=== PATIENT | male | born 1965 | race Caucasian/White ===

== ENCOUNTER 2022-12-08 14:21 | Emergency (ER) | payer BC, SELFPAY ==
--- NOTE | ~2022-12-08 | XR_ITS ---
EXAMINATION: XR CHEST CLINICAL INFORMATION: feeling unwell, shaking. COMPARISON: None TECHNIQUE: Frontal view of the chest was obtained. FINDINGS: Normal appearance of the cardiomediastinal silhouette. EKG wires overlie the chest. Query very subtle focal hazy opacities in the right lower lobe, otherwise clear lungs. No pleural effusion or pneumothorax. No acute osseous abnormalities. The visualized upper abdomen is within normal limits. XR/XR chest 1V IMPRESSION: Query subtle focal hazy opacities in the right lower lobe which could be related with subsegmental atelectasis, aspiration or early infiltrate.
--- NOTE | 2022-12-08 14:30 | ECG_ITS ---
Test Reason : generally feeling unwell Blood Pressure : / mmHG Vent. Rate : 093 BPM Atrial Rate : 093 BPM P-R Int : 152 ms QRS Dur : 084 ms QT Int : 360 ms P-R-T Axes : 057 048 047 degrees QTc Int : 447 ms Normal sinus rhythm Nonspecific ST and T wave abnormality Abnormal ECG No previous ECGs available Referred By: Justine Ponce Electronically Signed By:BRICE ROWELL MD
[2022-12-08 14:33] VITALS: BP 177/87; PULSE 104; RESP 21; TEMP 36.6; O2SAT 93
[2022-12-08 14:34] LABS: Glucose, Whole Blood 222 mg/dL (60-115)
[2022-12-08 14:39] VITALS: BP 160/85; PULSE 96; RESP 16; TEMP 36.6; O2SAT 96; BMI 31.5
[2022-12-08 14:52] LABS: MANUAL DIFF FLAG NO
[2022-12-08 14:53] LABS: Basophils Percent Auto 0.8 % (0-2); Eosinophils Absolute Auto 0.1 X10*3/uL (0.0-0.4); Eosinophils Percent Auto 1.2 % (0-4); Hemoglobin 13.8 g/dl (14.0-18.0); Imm Gran Abs Auto 0.01 X10*3/uL (0.00-0.03); Imm Gran Pct Auto 0.2 % (0.0-0.4); Lymphocytes Percent Auto 20.2 % (20-40); Mean Corpuscular HGB Conc 34.5 g/dl (31.0-36.0); Mean Corpuscular Volume 95.7 fL (80.0-98.0); Mean Platelet Volume 9.6 fL (9.4-12.4); Monocytes Absolute Auto 0.3 X10*3/uL (0.1-1.2); Monocytes Percent Auto 5.5 % (2-11); Neutrophils Absolute Auto 3.5 x10*3/uL (2.0-8.3); Neutrophils Percent Auto 72.1 % (45-73); Red Blood Count 4.18 X10*6/uL (4.60-5.80); Red Cell Distribution Width 13.4 % (11.0-16.0); White Blood Count 4.9 X10*3/uL (4.8-10.8)
[2022-12-08 15:12] LABS: Platelet Count 95 X10*3/uL (160-400)
[2022-12-08 15:19] LABS: Alanine Aminotransferase 40 U/L (0-40); Albumin Level 3.9 g/dL (3.5-5.0); Alkaline Phosphatase 75 U/L (39-117); Anion Gap 19 (12-20); Aspartate Amino Transferase 126 U/L (5-37); Bilirubin Total 3.3 mg/dL (0.0-1.0); Blood Urea Nitrogen 5 mg/dL (9-16); Calcium 9.1 mg/dL (8.4-10.2); Carbon Dioxide 22 mmol/L (22-29); Chloride 97 mmol/L (96-108); Creatinine Clr Calc Pharmacy 135.3; Estimated Glomerular Filt Rate > 60; Glucose Random 200 mg/dL (60-115); Magnesium 1.5 mg/dL (1.6-2.6); Potassium 4.1 mmol/L (3.3-5.1); Sodium 134 mmol/L (135-145); Total Protein 7.9 g/dL (6.5-8.0)
[2022-12-08 15:23] LABS: B Type Natriuretic Peptide < 10 pg/mL (<100)
[2022-12-08 15:27] LABS: Troponin-I High Sensitivity < 3.5 ng/L (<3.5-35.0)
[2022-12-08 16:00] VITALS: BP 141/83; PULSE 83; RESP 16; TEMP 36.7; O2SAT 98
--- NOTE | 2022-12-08 16:02 | MHC.EDTECH ---
this pct assumed care of patient at 1500 ,vitals sign taken ,patient asked for a cup of water ,provider said it was ok for patient to have water ,call pena within reach .
[2022-12-08 16:04] LABS: Influenza A PCR NEGATIVE (Negative); Influenza B PCR NEGATIVE (Negative); Resp Syncy Virus RNA Qual PCR NEGATIVE (Negative); SARS COV2 PCR INHOUSE NEGATIVE (Negative)
[2022-12-08] MEDS: Magnesium Oxide 400 MG TABLET 800 MG PO (16:30)
--- NOTE | 2022-12-08 16:36 | ED_ITS ---
HPI - General Adult General Chief complaint: Weakness Stated complaint: pt st having a stroke Time Seen by Provider: 12/08/22 14:25 Source: patient Mode of arrival: ambulatory Limitations: no limitations History of Present Illness HPI narrative: 57-year-old male with a past medical history of vertigo and type 2 diabetes controlled with oral medications presents to the emergency department today with complaints of a sudden onset of shaking and not feeling well while he was at work. On arrival to the emergency department, no neurologic deficits noted. He is concerned that this might be side effect of meclizine which he takes for vertigo, however; he states he has not had this side effect before but the santiago ing potentially correlates with his onset of symptoms. He reports a significant volume of stress lately, as his dog recently which has led to increased alcohol intake over the last week. He denies any binge drinking or drug use. He denies any recent illness or sick contacts. He de nies any chest pain, shortness of breath, diarrhea, constipation, fever, chills, headache, vision changes. Onset (ago): minute(s) ( 30 minutes prior to ED arrival at roughly 2:00 p.m.) Related Data Previous Rx's Medication Instructions Recorded azithromycin 250 mg tablet 250 mg PO DAILY 4 days #4 tabs 12/08/22 lorazepam 0.5 mg tablet 0.5 mg PO BID PRN anxiety #2 tabs 12/08/22 Allergies Allergy/AdvReac Type Severity Reaction Status Date / Time No Known Allergies Allergy Verified 12/08/22 14:30 Review of Systems Review of Systems: In addition to documented HPI above, the additional ROS was obtained: CONSTITUTIONAL: Denies fever, chills, weakness, fatigue, headache, night swea ts, or weight loss EYES: Denies vision changes, eye pain, swelling, redness, foreign body, discharge ENT: Hearing normal. Denies sore throat, swallowing difficulty, throat tightness, hoarse voice, congestion, or ear pain CV: Denies chest pain or epigastric pain. No edema, palpitations, or dyspnea on exertion RESP: Denies shortness of breath. Denies cough, wheezing, dyspnea. Denies smoke exposure GI: Denies abdominal pain. Denies nausea, vomiting, constipation or diarrhea. No hematemesis, melena, or hematochezia. : Denies dysuria, urinary frequency, urinary incontinence/retention, urgency. Denies flank pain or hematuria MSK: Denies recent trauma, change in gait, myalgias, joint swelling or pain SKIN: Denies no lesions, rashes, or sores NEURO: Denies new numbness, tingling, dizziness, paresthesias or weakness. No loss of consciousness. Denies headache ENDOCRINE: Denies unexpected weight loss. Denies polyuria, polydipsia. No temperature intolerance HEME/ONC: Denies bleeding disorders, easy bruising, or lymphadenopathy PSYCH: Denies anxiety/panic, depression, SI/HI, or social issues. Yes all other systems are reviewed and are negative [facility] Social History Social History Alcohol intake: current Alcohol intake frequency: 3 or more drinks per day Advance Directives: No Advance Directives Information Provided: No Physical Exam ED Vital Signs: Vital Signs - 24 hr 12/08/22 14:33 12/08/22 14:39 12/08/22 16:00 Temperature 97.9 F 97.9 F 98.0 F Pulse Rate 104 H 96 83 Respiratory Rate 21 H 16 16 Blood Pressure 177/87 H 160/85 H 141/83 H Pulse Oximetry 93 96 98 Oxygen Delivery Method Room Air Room Air Room Air BMI result Body Mass Index 31.5 Nursing notes and vital signs reviewed. GENERAL APPEARANCE: A&0 x 4, generally well appearing, no acute distress HENMT: Normal to inspection, atraumatic, face symmetrical. Normal external ears, nose, and oropharynx clear. EYE: PERRLA, EOM intact, structures appear normal NECK: Supple without lymphadenopathy. No stiffness or restricted ROM. CHEST: Normal to inspection HEART: Normal rate and regular rhythm, normal S1/S2, no M/R/G LUNGS: LS CTA, moving air well. Able to speak in complete sentences. No crackles, wheezes, or rhonchi auscultated ABDOMEN: Round, soft, nontender, nondistended. Normal bowel sounds noted BACK: No CVAT, no obvious deformity EXTREMITIES: Moving all extremities without difficulty. No cyanosis, clubbing, or edema. Normal capillary refill. NEUROLOGICAL: Alert and oriented, moving all 4 extremities with equal strength. CN not formally tested but appearing grossly intact. Observed to ambulate with normal gait. Cognition normal SKIN: Warm and dry without any lesions, rash, or visible sores PSYCH: Cooperative, normal affect, normal thought process Course Course Course Narrative: 1430: plan for labs, serology, UA, CXR, EKG. Initial VS with HR >104 and SpO2 93%, once pt settled into the bed and began speaking VS improved to HR 80-90 and SpO2 > 95%. 1615: Plan for 800 mg mag replacement. CXR atelectasis versus aspiration versus early infiltrate. Will plan to begin antibiotic therapy for coverage of potential pneumonia. 1645: On re-evaluation, patient states he has been having a lot of anxiety and feeling depressed due to the loss of his dog in addition to an increased work schedule at [employer] ex. He states he is had to work the last 7 days and he feels stressed and overwhelmed. Patient does not feel as if he is in crisis at this time and denies SI/HI, or self-harm. Offered patient to speak with crisis and declined. Patient provided with phone number for [facility]. Plan for two prescribed lorazepam for management of anxiety. Medications Administered Discontinued Medications Generic Name Dose Route Start Last Admin Trade Name Shana PRN Reason Stop Dose Admin Azithromycin 500 mg 12/08/22 16:47 12/08/22 17:01 Azithromycin 500 Mg Tablet PO 12/08/22 16:48 500 mg ONCE ONE Administration Lorazepam 1 mg 12/08/22 16:57 12/08/22 17:00 Lorazepam 1 Mg Tablet PO 12/08/22 16:58 1 mg ONCE ONE Administration Magnesium Oxide 800 mg 12/08/22 16:23 12/08/22 16:30 Magnesium Oxide 400 Mg Tablet PO 12/08/22 16:24 800 mg ONCE ONE Administration Medical Decision Making Medical Decision Making [facility] Narrative: 57-year-old male with a past medical history of vertigo and type 2 diabetes controlled with oral medications presents to the emergency department today with complaints of a sudden onset of shaking and not feeling well while he was at work. Well's score 0, low risk for PE. Repeat VS with HR < 100 and SpO2 >98 %. Chest x-ray showing atelectasis versus aspiration versus early infiltrate. Will plan to cover with Azithromycin for potential pneumonia. Blood work unremarkable for any acute concern. Mag level 1.5 with 800 mg p.o. replacement given. Normocytic anemia and mild asymptomatic thrombocytopenia noted along with glucose 223. Patient counseled to follow-up with his primary care provider in 2-3 days. Serology negative for RSV, flu, COVID-19. LS CTA, SWANSON equally with good strength, A&O x4. History, physical, and diagnostic exams consistent with acute anxiety. Low suspicion for ACS, PE, DVT, CVA. Patient is safe for discharge at this time with plan to manage symptoms with prescribed antibiotic and antianxiety medication (two 1 mg PRN pills prescribed). Patient counseled that antianxiety medication should not be taken if driving, drinking alcohol, or using other sedating medications. HPI, PE, diagnostics, and plan discussed with patient and family with no unanswered questions at this time. Patient educated to return to the emergency department with chest pain, shortness of breath, severe headache, vision changes, or concerning emergent symptoms. Recommended to follow-up with her primary care provider for further treatment and management. *Refer to Course for additional information on consultations, diagnostic interpretation, consultations, emergency department stay, conversations with patient and family, shared decision making with patient, and more information on medical decision making* Lab Data 12/08/22 14:44 12/08/22 14:44 Labs: Lab Results 12/08/22 12/08/22 12/08/22 Range/Units 14:30 14:44 14:44 WBC 4.9 (4.8-10.8) X10*3/uL RBC 4.18 L (4.60-5.80) X10*6/uL Hgb 13.8 L (14.0-18.0) g/dl Hct 40.0 L (42.0-52.0) % MCV 95.7 (80.0-98.0) fL MCH 33.0 (27.0-33.0) pg MCHC 34.5 (31.0-36.0) g/dl RDW 13.4 (11.0-16.0) % Plt Count 95 L (160-400) X10*3/uL MPV 9.6 (9.4-12.4) fL Immature Gran % (Auto) 0.2 (0.0-0.4) % Neut % (Auto) 72.1 (45-73) % Lymph % (Auto) 20.2 (20-40) % [place] % (Auto) 5.5 (2-11) % Eos % (Auto) 1.2 (0-4) % Baso % (Auto) 0.8 (0-2) % Lymph # (Auto) 1.0 L (1.2-4.9) X10*3/uL [place] # (Auto) 0.3 (0.1-1.2) X10*3/uL Eos # (Auto) 0.1 (0.0-0.4) X10*3/uL Baso # (Auto) 0.0 (0.0-0.2) X10*3/uL Abs Immat Gran (auto) 0.01 (0.00-0.03) X10*3/uL Absolute Neuts (auto) 3.5 (2.0-8.3) x10*3/uL Absolute Nucleated RBC 0.000 (0.0-0.012) X10*3/uL Nucleated RBC % (auto) 0.0 (0.0-0.2) /100WBC Sodium 134 L (135-145) mmol/L Potassium 4.1 (3.3-5.1) mmol/L Chloride 97 (96-108) mmol/L Carbon Dioxide 22 (22-29) mmol/L Anion Gap 19 (12-20) BUN 5 L (9-16) mg/dL Creatinine 0.73 (0.5-1.4) mg/dL Estim Creat Clear Calc 135.3 Estimated GFR > 60 POC Glucose 222 H (60-115) mg/dL Random Glucose 200 H (60-115) mg/dL Calcium 9.1 (8.4-10.2) mg/dL Magnesium 1.5 L (1.6-2.6) mg/dL Total Bilirubin 3.3 H (0.0-1.0) mg/dL AST 126 H (5-37) U/L ALT 40 (0-40) U/L Alkaline Phosphatase 75 (39-117) U/L Troponin I High Sens (<3.5-35.0) ng/L B-Natriuretic Peptide (<100) pg/mL Total Protein 7.9 (6.5-8.0) g/dL Albumin 3.9 (3.5-5.0) g/dL Influenza Type A (PCR) (Negative) Influenza Type B (PCR) (Negative) RSV RNA Qual (PCR) (Negative) SARS-CoV-2 RNA (RT-PCR) (Negative) 01/21/23 01/21/23 01/21/23 Range/Units 14:44 14:44 14:44 WBC (4.8-10.8) X10*3/uL RBC (4.60-5.80) X10*6/uL Hgb (14.0-18.0) g/dl Hct (42.0-52.0) % MCV (80.0-98.0) fL MCH (27.0-33.0) pg MCHC (31.0-36.0) g/dl RDW (11.0-16.0) % Plt Count (160-400) X10*3/uL MPV (9.4-12.4) fL Immature Gran % (Auto) (0.0-0.4) % Neut % (Auto) (45-73) % Lymph % (Auto) (20-40) % [place] % (Auto) (2-11) % Eos % (Auto) (0-4) % Baso % (Auto) (0-2) % Lymph # (Auto) (1.2-4.9) X10*3/uL [place] # (Auto) (0.1-1.2) X10*3/uL Eos # (Auto) (0.0-0.4) X10*3/uL Baso # (Auto) (0.0-0.2) X10*3/uL Abs Immat Gran (auto) (0.00-0.03) X10*3/uL Absolute Neuts (auto) (2.0-8.3) x10*3/uL Absolute Nucleated RBC (0.0-0.012) X10*3/uL Nucleated RBC % (auto) (0.0-0.2) /100WBC Sodium (135-145) mmol/L Potassium (3.3-5.1) mmol/L Chloride (96-108) mmol/L Carbon Dioxide (22-29) mmol/L Anion Gap (12-20) BUN (9-16) mg/dL Creatinine (0.5-1.4) mg/dL Estim Creat Clear Calc Estimated GFR POC Glucose (60-115) mg/dL Random Glucose (60-115) mg/dL Calcium (8.4-10.2) mg/dL Magnesium (1.6-2.6) mg/dL Total Bilirubin (0.0-1.0) mg/dL AST (5-37) U/L ALT (0-40) U/L Alkaline Phosphatase (39-117) U/L Troponin I High Sens < 3.5 (<3.5-35.0) ng/L B-Natriuretic Peptide < 10 (<100) pg/mL Total Protein (6.5-8.0) g/dL Albumin (3.5-5.0) g/dL Influenza Type A (PCR) NEGATIVE (Negative) Influenza Type B (PCR) NEGATIVE (Negative) RSV RNA Qual (PCR) NEGATIVE (Negative) SARS-CoV-2 RNA (RT-PCR) NEGATIVE (Negative) Independent Interpretation I performed an independent interpretation of an: EKG Interpretation: I have independently reviewed the EKG showing normal sinus rhythm at 93 bpm, nonischemic. Vent. Rate : 093 BPM ? ? Atrial Rate : 093 BPM ?? P-R Int : 152 ms? QRS Dur : 084 ms ? ? QT Int : 360 ms ? ? ? P-R-T Axes : 057 048 047 degrees ?? QTc Int : 447 ms ? Normal sinus rhythm Nonspecific ST and T wave abnormality Abnormal ECG No previous ECGs available Radiology Impression Discussion of test interpretation with radiology: I have reviewed the radiologist's reading. Radiologist Impression: I have independently reviewed the chest x-ray showing atelectasis vs aspiration vs early infiltrate EXAMINATION: XR CHEST CLINICAL INFORMATION: feeling unwell, shaking. COMPARISON: None TECHNIQUE: Frontal view of the chest was obtained. FINDINGS: Normal appearance of the cardiomediastinal silhouette. EKG wires overlie the chest. Query very subtle focal hazy opacities in the right lower lobe, otherwise clear lungs. No pleural effusion or pneumothorax. No acute osseous abnormalities. The visualized upper abdomen is within normal limits. XR/XR chest 1V IMPRESSION: Query subtle focal hazy opacities in the right lower lobe which could be related with subsegmental atelectasis, aspiration or early infiltrate. Dictated By: Mell Chairez Signed By: <Electronically signed by Mell? Contreras in OV> 12/08/22 1534 DD/ 1454 TD/TT:? School Counsellor: Discharge Plan Discharge Clinical Impression: Anxiety, Depression, Feeling grief Patient Disposition: Home, Self-Care Instructions: Depression (ED), Panic Disorder (ED), Anxiety (ED) Additional Instructions: your EKG was normal. Your chest x-ray shows a possible early pneumonia. You have been prescribed an antibiotic for treatment of this, please take as prescr ibed. Your blood work showed an elevated blood sugar, anemia (lower blood cells) and mild thrombocytopenia (lower platelets). These blood levels do not require emergent care at this time, however; please follow-up with your primary care provider in the next 2-3 days for further treatment and management. It is recommended that you begin a multivitamin with iron. If this medication causes difficulty moving her bowels you may take docusate or MiraLax to eat in bowel movements. Two anti anxiety medications have been provided to you for treatment of panic/severe anxiety. It is recommended that you take half a pill at a time. This is a temporary medication in you should follow-up with your primary care provider for continued treatment of anxiety /panic. Prescriptions: New lorazepam 0.5 mg tablet 0.5 mg PO BID PRN (Reason: anxiety) Qty: 2 0RF azithromycin 250 mg tablet 250 mg PO DAILY 4 Days Qty: 4 0RF Rx Instructions: start on day 2 of therapy, 12/08/22. You received 1st dose in the emergency department. Referrals: [facility] [Provider Group] Adrian Sandoval MD [Primary Care Provider] - Stand Alone Forms: Work/School Release Interventions: ED Discharge Assessment Last Done: 12/08/22 17:23 Discharge Date/Time: 12/08/22 17:24 Print Language: Indonesian
[2022-12-08] MEDS: LORazepam 1 MG TABLET PO (17:00)
[2022-12-08] MEDS: Azithromycin 500 MG TABLET PO (17:01)
== END 2022-12-08 17:24 | disposition home or self-care (01) ==
PROVIDERS: Nurse Practitioner Family; Emergency Provider Emergency Medicine; PCP Internal Medicine
DX: F41.9 Anxiety disorder, unspecified (principal); F43.21 Adjustment disorder with depressed mood; F32.A Depression, unspecified; E11.65 Type 2 diabetes mellitus with hyperglycemia; E83.42 Hypomagnesemia; D64.9 Anemia, unspecified; D69.6 Thrombocytopenia, unspecified; R53.1 Weakness; Z72.89 Other problems related to lifestyle; Z56.3 Stressful work schedule; Z20.822 Contact with and (suspected) exposure to COVID-19; Z20.828 Contact with and (suspected) exposure to other viral communicable diseases; Z79.84 Long term (current) use of oral hypoglycemic drugs
CPT/HCPCS: 0241U; 36415; 71045; 80053; 82947; 83735; 83880; 84484; 85025; 93005; 99283; 99284